=== PATIENT | female | born 1970 | race American Indian/Alaskan Native ===

== ENCOUNTER 2017-05-17 23:15 | Emergency (ER) | payer SELFPAY ==
[2017-05-18 00:18] VITALS: BP 131/73
== END 2017-05-18 06:31 | disposition left against medical advice (07) ==
LOC: ED 23:15
DX: M54.9 Dorsalgia, unspecified (principal); M25.512 Pain in left shoulder; Z53.21 Procedure and treatment not carried out due to patient leaving prior to being seen by health care provider